=== PATIENT | male | born 1995 ===

== ENCOUNTER 2018-10-22 12:00 | Outpatient (CLI) | payer OTHER | END 2018-10-22 22:00 | disposition home or self-care (01) | LOC: TOM 12:00 | DX: Q37.0 Cleft hard palate with bilateral cleft lip (principal) ==

== ENCOUNTER 2019-04-24 10:56 | Outpatient (CLI) | payer OTHER | END 2019-04-24 10:58 | disposition home or self-care (01) | LOC: TOM 10:56 | DX: Q37.0 Cleft hard palate with bilateral cleft lip (principal) ==